=== PATIENT | female | born 1970 | race Caucasian/White ===

== ENCOUNTER → 2017-06-21 | Outpatient (CLI) | payer BC | END | disposition home or self-care (01) | LOC: GMA 17:37 | PROVIDERS: ATTEND Nurse Practitioner Family | DX: L03.311 Cellulitis of abdominal wall (principal) ==

== ENCOUNTER → 2017-12-23 | Outpatient (CLI) | payer BC ==
--- NOTE | 2018-01-05 11:08 | MAM ---
EXAM DESCRIPTION: 3D Screening BILATERAL : Digital Mammography. CLINICAL HISTORY: 47 years Female SCREENING . No complaints. Remote family history of breast cancer. Postmenopausal. Currently on HRT. COMPARISON: 2-D digital screening bilateral study 09/21/2016.. Report from prior examination also reviewed. TECHNIQUE: Bilateral CC and MLO projection full-field images, 3-D tomosynthesis digital mammographic technique. Also bilateral synthesized CC/ MLO full-field images. CAD not utilized. FINDINGS: The breast parenchymal density pattern is: Scattered areas of fibroglandular density. No skin thickening or nipple retraction bilateral solitary microcalcifications. Intramammary lymph nodes in the left axillary tail. No focal, stellate mass or density, focal asymmetry , and no suspicious microcalcifications bilaterally. Stable mammograms compared to prior study, taking into account differences in mammographic technique IMPRESSION: BI-RADS CATEGORY: 2 - BENIGN FINDINGS. FOLLOW UP: Routine digital bilateral screening, one year interval from November 2017. Written communication explaining the IMPRESSION and follow-up, will be mailed to the patient and referring health care provider. According to the [employer], yearly mammograms are recommended starting at age 40 and continuing as long as a woman is in good health. Any breast change noted on a breast self-exam should be reported promptly to the patient's healthcare provider. Breast MRI is recommended for women with an approximately 20-25% or greater lifetime risk of breast cancer, including women with a strong family history of breast or ovarian cancer and women who have been treated for Hodgkin's disease. A negative mammographic report should not delay tissue diagnosis in patients with significant clinical history or physical findings. Extremely dense breast tissue limits the sensitivity of digital mammography. Electronically signed by: Jr Dailey MD 01/05/2018 11:06 AM [facility]
== END ==
LOC: MAMMO 11:00
PROVIDERS: ATTEND Nurse Practitioner Family
DX: Z12.31 Encounter for screening mammogram for malignant neoplasm of breast (principal)

== ENCOUNTER → 2018-09-30 | Outpatient (CLI) | payer BC | LOC: GMAJ 11:41 | PROVIDERS: ATTEND Family Medicine | DX: E03.9 Hypothyroidism, unspecified (principal) ==

== ENCOUNTER → 2019-07-26 | Outpatient (CLI) | payer BC ==
--- NOTE | 2019-07-26 15:36 | MRI ---
EXAM DESCRIPTION: Shoulder,Left CLINICAL HISTORY: 48 years, Female, COMPLETE ROTATOR CUFF TEAR OR RUPTURE OF LEFT SHOULDER. Left shoulder pain after fall four weeks ago. COMPARISON: Left shoulder radiograph 07/24/2019. TECHNIQUE: MRI of the left shoulder was performed with multiplanar multi sequence imaging without intravenous contrast. FINDINGS: Rotator tendons: Background mild supraspinatus moderate subscapularis tendinosis. There is partial-thickness bursal surface tear of the supraspinatus anterior fibers (approximately 30% thickness) extending to the myotendinous junction without tendon retraction. Mild partial-thickness not retracted tears of the subscapularis tendon superior fibers. No full-thickness tear or tendon retraction. The infraspinatus and teres minor tendons are intact. Rotator muscles: No significant rotator cuff muscle atrophy. Glenoid labrum: Limited evaluation of the labrum is within normal limits. Acromion: The acromion morphology is type two. Bone and joints: No focal bone marrow contusion or fracture. No thickness cartilage defect. Mild left acromioclavicular joint osteoarthrosis with mild capsular hypertrophy. Biceps tendon: Normal course and morphology of the biceps tendon long head within the bicipital groove. The biceps labral anchor appears intact. Small amount of fluid distends the biceps tendon sheath. Soft tissues: Mild edema within the rotator cuff interval with grade 1 sprains of the superior glenohumeral and coracohumeral ligaments. Mild subacromial/subdeltoid bursitis. IMPRESSION: 1. Background supraspinatus and subscapularis tendinosis. 2. Partial-thickness tears of the supraspinatus tendon and subscapularis tendons without focal full-thickness rotator cuff tear or tendon retraction. 3. Rotator interval injury and edema with grade 1 sprain of the superior glenohumeral and coracohumeral ligaments. 4. Moderate left acromioclavicular joint osteoarthrosis with mild subacromial/subdeltoid bursitis. Electronically signed by: Filemon Meraz DO 07/26/2019 3:35 PM CDT
== END ==
LOC: MRI 10:52
PROVIDERS: ATTEND Family Medicine
DX: M75.122 Complete rotator cuff tear or rupture of left shoulder, not specified as traumatic (principal); M65.812 Other synovitis and tenosynovitis, left shoulder; M19.012 Primary osteoarthritis, left shoulder

== ENCOUNTER → 2019-08-08 | Outpatient (CLI) | payer BC ==
--- NOTE | 2019-08-10 20:42 | MAM ---
EXAM DESCRIPTION: 3D Screening BILATERAL : Digital Mammography. CLINICAL HISTORY: 48 years Female SCREEN . No complaints. No personal or family history of breast cancer. Childbirth. This menopausal more than one year. Currently on HRT.. Lifetime risk of developing breast cancer (Tyrer-Cuzick model)(%): 0.1. COMPARISON: Bilateral screening digital breast tomosynthesis 12/23/2017. TECHNIQUE: Bilateral CC and MLO projection full-field images, digital tomosynthesis mammographic technique. Bilateral digital 2-D full-field MLO images. CAD not available for tomosynthesis or 2-D images. FINDINGS: The breast parenchymal density pattern is: Scattered areas of fibroglandular density. No skin thickening or nipple retraction. Scattered bilateral solitary microcalcifications. Bilateral focal asymmetry upper outer quadrant posterior breast is stable. Posterior lymph nodes in the left axillary tail. No new focal, stellate mass or density, focal asymmetry , and no suspicious microcalcifications bilaterally. Stable mammograms compared to prior study. IMPRESSION: Benign exam. BIRAD CATEGORY: 2 BENIGN FINDINGS. RECOMMENDATIONS: FOLLOW UP: Routine digital bilateral mammographic screening, one year interval from July 2019. Written communication explaining the IMPRESSION and follow-up, will be mailed to the patient and referring health care provider. According to the [employer], yearly mammograms are recommended starting at age 40 and continuing as long as a woman is in good health. Any breast change noted on a breast self-exam should be reported promptly to the patient's healthcare provider. Breast MRI is recommended for women with an approximately 20-25% or greater lifetime risk of breast cancer, including women with a strong family history of breast or ovarian cancer and women who have been treated for Hodgkin's disease. A negative mammographic report should not delay tissue diagnosis in patients with significant clinical history or physical findings. Extremely dense breast tissue limits the sensitivity of digital mammography. Electronically signed by: Jr Dailey MD 08/10/2019 8:41 PM CDT
== END ==
LOC: MAMMO 08:07
PROVIDERS: ATTEND Nurse Practitioner Family
DX: Z12.31 Encounter for screening mammogram for malignant neoplasm of breast (principal)

== ENCOUNTER → 2021-01-08 | Outpatient (CLI) | payer BC ==
--- NOTE | 2021-01-09 13:40 | US ---
EXAM DESCRIPTION: Pelvis Transvaginal: Ultrasound. CLINICAL HISTORY: 50 years Female ABNORMAL UTERINE BLEEDING STATUS post ablation. LMP unknown. COMPARISON: None. TECHNIQUE: Endovaginal scanning; Alvarez-scale and Doppler modes. FINDINGS: Uterus 8.4 x 4.5 x 3.4 cm 77.4 mL.. Uterus not retroflexed.. Endometrial thickness is difficult to evaluate. Approximately 3.7-4.6 mm. Minimal fluid in the canal. Myometrium heterogeneous.. Cervix cyst 5.4 mm.. Cul-de-sac no fluid. Right ovary 1.6 x 1.3 x 1.3 cm 1.4 mL. Normal waveform and color Doppler vascularity. No follicles or cysts. No adnexal mass or free fluid. Left ovary 2.2 x 1.7 x 1.3 cm 2.5 mm. Normal waveform and color Doppler vascularity. No follicles or cysts. No adnexal mass or free fluid. IMPRESSION: 1. Normal orientation of the uterus and not enlarged. Heterogeneous myometrium. Endometrium difficult to evaluate but not thick. Minimal fluid in the canal. Nabothian Cyst in the cervix. 2. Bilateral ovaries normal size and normal vascularity. No adnexal mass or fluid. Electronically signed by: Jr Dailey MD 01/09/2021 1:38 PM [employer] [facility]
== END ==
LOC: US 12:19
PROVIDERS: ATTEND Family Medicine
DX: N93.9 Abnormal uterine and vaginal bleeding, unspecified (principal); N88.8 Other specified noninflammatory disorders of cervix uteri